=== PATIENT | male | born 1945 | race Two or more races ===

== ENCOUNTER 2021-12-01 09:05 | Emergency (ER) | payer OTHER ==
[2021-12-01 09:23] VITALS: BP 173/81; PULSE 96; TEMP 97.9; BMI 27.6
[2021-12-01] MEDS ORDERED: ACETAMINOPHEN 1000 MG/100 ML BAG IVPB ONE (10:04)
[2021-12-01] MEDS ORDERED: ACETAMINOPHEN INJECTION 100 ML IVPB ONE (10:28)
[2021-12-01 11:00] LABS: BASO % 1.1 % (0-2.0); EOS % 0.8 % (0-4.5); HEMATOCRIT 47.7 % (35.4-49); HEMOGLOBIN 15.8 GM/dL (11.7-16.9); LYMPH % 7.3 % (8-40); MCH 29.7 pg (25.7-33.7); MCHC 33.2 g/dl (32.0-35.9); MEAN CELL VOLUME 89.5 fl (80-96); MEAN PLT VOLUME 8.2 fl (7.5-11.1); MONO % 4.9 % (3.8-10.2); NEUT % 85.9 % (42.8-82.8); PLATELET COUNT 239 10^3/uL (134-434); RBC 5.33 M/mm3 (4.00-5.60); WHITE BLOOD COUNT 11.3 K/mm3 (4.0-10.0)
[2021-12-01 11:22] LABS: CALCIUM 9.4 mg/dL (8.5-10.1)
[2021-12-01 11:23] LABS: ALBUMIN 4.4 g/dl (3.4-5.0); BLOOD UREA NITROGEN 19.2 mg/dL (7-18)
[2021-12-01 11:25] LABS: CREATININE 1.1 mg/dL (0.55-1.3)
[2021-12-01 11:27] LABS: BILIRUBIN,TOTAL 0.7 mg/dL (0.2-1); TOT PROT 7.6 g/dl (6.4-8.2)
[2021-12-01] MEDS ORDERED: SODIUM PHOSPHATE/NA BIPHOS 133 ML ENEMA PR ONE (15:38)
[2021-12-01 16:39] LABS: URINE APPEARANCE CLEAR; URINE BILIRUBIN NEGATIVE (NEGATIVE); URINE COLOR YELLOW; URINE GLUCOSE (UA) >=1000 (NEGATIVE); URINE KETONE NEGATIVE (NEGATIVE)
[2021-12-01 16:40] LABS: PH,URINE 6.5 (5.0-8.0); URINE LEUK ESTERASE NEGATIVE (NEGATIVE); URINE NITRITE NEGATIVE (NEGATIVE); URINE PROTEIN NEGATIVE (NEGATIVE); URINE UROBILINOGEN 0.2 mg/dL (0.2-1.0)
== END 2021-12-01 17:26 | disposition home or self-care (01) ==
LOC: JER 09:05
PROC: 3E0333Z Introduction of Anti-inflammatory into Peripheral Vein, Percutaneous Approach (ICD-10-PCS; principal; 2021-12-01)
DX: R33.9 Retention of urine, unspecified (principal); K59.00 Constipation, unspecified
CPT/HCPCS: 36415; 74177-TC; 80053; 81003; 83605; 85025; 87086; 93005; 93010; 99285-25; C9803; J0131; Q9967; U0003; U0005

== ENCOUNTER 2024-02-11 10:24 | Emergency (ER) | payer OTHER ==
[2024-02-11 10:39] VITALS: BP 144/72; PULSE 79; RESP 18; TEMP 98; BMI 25.8
== END 2024-02-11 12:26 | disposition home or self-care (01) ==
LOC: JER 10:24
DX: R04.0 Epistaxis (principal)
CPT/HCPCS: 99283-25